=== PATIENT | male | born 1940 | race Hispanic/Latino ===

== ENCOUNTER 2018-02-11 01:56 | Observation (INO) | payer MEDICARE, MEDICAID ==
[2018-02-11 04:34] LABS: Troponin I Less than 0.010 ng/mL (< 0.028)
[2018-02-11] MEDS: Sodium Chloride 0.9% 1,000 ML IV SCH ×2 (04:45→10:44)
[2018-02-11 04:56] VITALS: BMI 26.6
[2018-02-11 07:09] LABS: Troponin I Less than 0.010 ng/mL (< 0.028)
[2018-02-11 11:31] VITALS: BP 146/72; TEMP 98
--- NOTE | 2018-02-11 11:52 | SS ---
DATE OF ADMISSION: 02/11/2018 PRIMARY CARE PROVIDER: George Conley MD CHIEF COMPLAINT: Altered mental status. HISTORY OF PRESENT ILLNESS: This is a 77-year-old male, who presents from [facility] after the patient was noted with altered mentation and general weakness. The pa rama states that he underwent a tooth extraction on 02/10/2018 and was placed up on Tylenol #3 and a moxicillin. The patient states he after taking the Tylenol #3 became lethargic, confused, and was fo und diaphoretic and weak after smoking a cigarette at the facility. EMS personnel were notified and the patient was noted with hypotension with some confusion; however, was alert and oriented x2 per EM S report. The patient does not remember any specific loss of consciousness or evaluation at the hosp [facility] emergency room. The patient denies any specific chest pain, unilateral weakness, headache, or s hortness of breath, but had complained of some mouth pain after the dental extraction. The patient r eceived IV fluids by EMS personnel with initial blood pressure in the 70s-80s systolic. The patient denied any other specific nausea, vomiting, diarrhea, fever, or chills. The patient states he has be en living out at [facility] for approximately 1 year; however, his permanent home i s in the [place], [place] area. PAST MEDICAL HISTORY: 1. Subdural hematoma, status post fall with closed head injury in 2012. Conservative management. 2. Dementia, likely Alzheimer's type. 3. Hepatic cirrhosis, secondary to history of alcohol abuse. 4. Tobacco abuse. 5. Chronic hepatitis C. 6. Deconditioning. PAST SURGICAL HISTORY: Status post hernia repair. CURRENT MEDICATIONS: 1. Amlodipine 10 mg 1 tab p.o. daily. 2. Amoxicillin 500 mg p.o. b.i.d. 3. Lumigan 1 drop to each eye daily. 4. Depakote Extended Release 125 mg p.o. b.i.d. 5. Aricept 23 mg p.o. at bedtime. 6. Lasix 20 mg p.o. daily. 7. Multivitamin 1 tab p.o. daily. 8. Naproxen 500 mg p.o. b.i.d. 9. Potassium chloride 10 mEq p.o. b.i.d. 10. Propranolol 10 mg p.o. t.i.d. 11. Flomax 0.4 mg p.o. at bedtime. 12. Tramadol 50 mg p.o. q.i.d. p.r.n. 13. Trazodone 300 mg p.o. at bedtime. ALLERGIES: No known drug allergies. FAMILY HISTORY: Positive for hypertension. SOCIAL HISTORY: Patient resides at [facility]. Smokes up to a pack of ci garettes daily. No alcohol or illicit drug use. REVIEW OF SYSTEMS: The following complete review of systems was negative, unless otherwise mentioned in the HPI or below: Constitutional: Weight loss or gain, ability to conduct usual activities. Sk in: Rash, itching. Eyes: Double vision, pain. ENT/Mouth: Nose bleeding, neck stiffness, pain, te nderness. Cardiovascular: Palpitations, dyspnea on exertion, orthopnea. Respiratory: Shortness of breath, wheezing, cough, hemoptysis, fever, or night sweats. Gastrointestinal: Poor appetite, abdo karen pain, heartburn, nausea, vomiting, constipation, or diarrhea. Genitourinary: Urgency, frequen cy, dysuria, nocturia. Musculoskeletal: Pain, swelling. Neurologic/Psychiatric: Anxiety, depressi on. Allergy/Immunologic: Skin rash, bleeding tendency. Otherwise, negative except as stated per HP I. PHYSICAL EXAMINATION: VITAL SIGNS: Currently, blood pressure 144/65, pulse 59, respiratory rate 16, temperature 98.0 degre es Fahrenheit, O2 saturation 97% on room air. GENERAL APPEARANCE: This is a 77-year-old male, alert and oriented x2, pleasant, conversant , in no acute distress. HEENT EXAM: Pupils are equal, round, and reactive to light and accommodation. Extraocular muscles a re intact. No scleral icterus, no conjunctival injection. Nares patent. OP is clear. Teeth in poo r repair. NECK: Supple, no cervical adenopathy, no thyromegaly, no carotid bruits, no JVD. Cervical spine wit h full active and passive range of motion. CHEST: Lungs are clear to auscultation bilaterally. CARDIOVASCULAR EXAM: S1, S2 with 1-2/6 systolic ejection murmur, loudest in the left upper sternal b order. ABDOMEN: Rounded, soft, nontender, nondistended. Bowel sounds are positive in all 4 quadrants. The re is no hepatosplenomegaly, no abdominal bruits, no rebound or guarding appreciated. EXTREMITIES: Warm and dry with fair turgor. No clubbing, cyanosis, or asymmetric edema appreciated. Pulses palpable distally at the dorsalis pedis, posterior tibial, and popliteal arteries bilaterall y. Capillary refill less than 2 seconds. NEUROLOGIC EXAM: Cranial nerves II-XII are grossly intact. No focal or lateralizing signs appreciat ed. PERTINENT LABORATORY AND X-RAY FINDINGS: Creatinine 1.36, estimated GFR 51, glucose 105. LFTs withi n normal limits. Troponin I negative x3. CBC showed a white blood cell count of 3.2, hemoglobin 13. 4, hematocrit 40, platelet count 66,000 with normal differential. Portable chest x-ray dated 018 showed no acute cardiopulmonary process. EKG dated 02/11/2018, by my interpretation, shows sinus bradycardia with heart rates in the 50s. Normal R-wave progression noted in the precordial leads. Right bundle branch block pattern noted. No acute ST-T-wave changes appreciated. ASSESSMENT AND PLAN: 1. Toxic metabolic encephalopathy. Secondary to Tylenol #3 exposure. We will continue patient off Tylenol #3 and give general supportive management. Patient currently at baseline mental status funct ion. 2. Hypotension. Suspect secondary to dehydration. Encouraged increased free water intake orally, r esolved. 3. Sinus bradycardia. 4. Chronic condition without symptomatic component. Continue regular outpatient cardiac medications . 5. Chronic kidney disease, stage 2-3. Stable currently. Baseline estimated GFR after review of the medical records. Avoid nephrotoxic agents and limit contrast exposure. 6. Status post tooth extraction. Stable currently. Continue amoxicillin 500 mg p.o. b.i.d. Pain c ontrol with Ultram or naproxen. Discontinue Tylenol #3. 7. Chronic thrombocytopenia. Stable. When compared with previous values dating back to 2013, trend is stable. 8. Prophylaxis. Sequential compression devices while in bed. Pepcid 20 mg p.o. b.i.d. 9. Code status is FULL. Surrogate medical decision maker is patient's brother. DISPOSITION: Discharge back to [facility]. No further workup recommended. The jade ontiveros will follow up with his primary care provider, Dr. Conley.
--- NOTE | 2018-02-11 17:10 | EKG ---
Test Reason : Blood Pressure : / mmHG Vent. Rate : 054 BPM Atrial Rate : 054 BPM P-R Int : 218 ms QRS Dur : 142 ms QT Int : 496 ms P-R-T Axes : 050 -14 043 degrees QTc Int : 470 ms Sinus bradycardia with 1st degree A-V block Right bundle branch block Abnormal ECG Confirmed by ALEX GROSS, DR. Cárdenas ([id number]) on 02/11/2018 5:10:25 PM Referred By: Confirmed By:DR. Melia JOHNSON MD
[2018-02-12] MEDS ORDERED: Prevnar 13-Val Conj/PF 0.5 ML SYRINGE IM ONE (09:00)
== END 2018-02-11 13:59 ==
LOC: ERS 01:56 → 2SW 04:20
PROVIDERS: ADMIT Hospitalist; ATTEND Hospitalist
DX: G92 Toxic encephalopathy (principal); T40.2X5A Adverse effect of other opioids, initial encounter; F17.210 Nicotine dependence, cigarettes, uncomplicated; F03.90 Unspecified dementia, unspecified severity, without behavioral disturbance, psychotic disturbance, mood disturbance, and anxiety; B18.2 Chronic viral hepatitis C; I95.9 Hypotension, unspecified; N18.3 Chronic kidney disease, stage 3 (moderate); D69.6 Thrombocytopenia, unspecified; Z79.899 Other long term (current) drug therapy
CPT/HCPCS: 36415; 84484; 93005

== ENCOUNTER 2020-07-31 13:47 | Outpatient (CLI) | payer MEDICARE, MEDICAID ==
[2020-07-31 16:42] LABS: Bilirubin Neg (Negative); Blood, Urine 250 (Negative); Clarity Bloody (Clear); Glucose, Urine (Dipstick) Normal (Negative); Ketone, Urine Negative (Negative); Leukocyte 25 (Negative); Nitrite Negative (Negative); Protein, Urine (Dipstick) 100 mg/dl (Neg-Trace); Urobilinogen Normal mg/dL (Less than 2)
[2020-07-31 16:50] LABS: Hemoglobin 11.3 g/dL (13.5-17.5); Mean Corpuscular HGB CONC 32.5 g/dL (32.0-36.0); Mean Corpuscular Hemoglobin 28.8 pg (27.0-33.0); Mean Corpuscular Volume 88.5 fl (81.2-95.1); Mean Platelet Volume 10.3 fl (7.4-10.4); Platelet Count 131 10x3/uL (150-450); RBC Distribution Width 13.2 % (11.5-14.5); Red Blood Cell (RBC) Count 3.93 10x6/uL (4.32-5.72); White Blood Cell (WBC) Count 3.6 10x3/uL (3.5-10.5)
[2020-07-31 16:51] LABS: RBC/HPF Greater than 50 HPF (0-3); Squamous Epithelial 0-3 HPF (0-3)
[2020-07-31 16:52] LABS: Bacteria/HPF 1+ HPF (None Seen)
[2020-07-31 16:55] LABS: Anion Gap 13 mmol/L (10-20); BUN (Urea Nitrogen) 16 mg/dL (8.4-25.7); Calc. Creatinine Clearance 0 mL/min (70-130); Calcium 8.8 mg/dL (7.8-10.44); Carbon Dioxide 25 mmol/L (23-31); Chloride 107 mmol/L (98-107); Glucose 105 mg/dL (83-110); Potassium 4.3 mmol/L (3.5-5.1); Sodium 141 mmol/L (136-145)
[2020-07-31 17:10] LABS: INR-International Normal Ratio 1.1; PTT 31.7 sec (22.0-33.0); Prothrombin Time 11.9 sec (9.5-12.1)
[2020-08-01 01:27] LABS: SARS-CoV-2 PCR by NAA Not Detected (NotDetected)
== END 2020-07-31 13:48 | disposition home or self-care (01) ==
LOC: LABBT 13:47
PROVIDERS: ATTEND Urology
DX: Z01.818 Encounter for other preprocedural examination (principal); Z01.812 Encounter for preprocedural laboratory examination; Z20.822 Contact with and (suspected) exposure to COVID-19; C67.2 Malignant neoplasm of lateral wall of bladder; K70.30 Alcoholic cirrhosis of liver without ascites; N40.1 Benign prostatic hyperplasia with lower urinary tract symptoms; R35.0 Frequency of micturition; D61.818 Other pancytopenia; F31.70 Bipolar disorder, currently in remission, most recent episode unspecified; F10.27 Alcohol dependence with alcohol-induced persisting dementia; Z86.73 Personal history of transient ischemic attack (TIA), and cerebral infarction without residual deficits
CPT/HCPCS: 80048; 81001; 85027; 85610; 85730; 87086; U0003; U0005; 87635; 93005; 93010

== ENCOUNTER 2020-08-03 08:03 | Day surgery (SDC) | payer MEDICARE, MEDICAID ==
[2020-08-02 10:19] VITALS: BMI 25.5
[2020-08-03] MEDS ORDERED: Levofloxacin 500 mg/D5W 100 ml Premix Bag ONE (09:11)
[2020-08-03] MEDS ORDERED: mitoMYcin 40 MG in Sterile Water 20 ML I-VESIC SCH (09:15)
[2020-08-03] MEDS ORDERED: Fentanyl 100 MCG/2 ML VIAL ONE (11:25)
[2020-08-03] MEDS ORDERED: B & O ONE (11:39)
[2020-08-03] MEDS ORDERED: Ondansetron PF 4 MG/2 ML Vial ONE (11:59)
[2020-08-03] MEDS ORDERED: Dexamethasone 20 MG/5 ML VIAL ONE (11:59)
[2020-08-03] MEDS ORDERED: Lidocaine 1% PF 5 ML VIAL ONE (11:59)
[2020-08-03] MEDS ORDERED: PROPOFOL 200 MG/20 ML VIAL ONE (11:59)
[2020-08-03] MEDS ORDERED: Rocuronium Bromide 10 MG/ML (10ML VIAL) ONE (11:59)
[2020-08-03] MEDS ORDERED: SUGAMMADEX SODIUM 200 MG/2 ML VIAL ONE (13:17)
[2020-08-03] MEDS ORDERED: Promethazine HCl 25 MG/ML VIAL SLOW IVP PRN (15:00)
[2020-08-03] MEDS ORDERED: Promethazine HCl 25 MG/ML VIAL IM PRN (15:00)
[2020-08-03] MEDS ORDERED: Ondansetron HCl/PF 4 MG/2 ML Vial IVP PRN (15:00)
== END 2020-08-03 17:45 ==
LOC: SDC 08:03
PROVIDERS: ATTEND Urology
PROC: 0T5B8ZZ Destruction of Bladder, Via Natural or Artificial Opening Endoscopic (ICD-10-PCS; principal; 2020-08-03)
PROC: 0T768DZ Dilation of Right Ureter with Intraluminal Device, Via Natural or Artificial Opening Endoscopic (ICD-10-PCS; 2020-08-03)
DX: C67.2 Malignant neoplasm of lateral wall of bladder (principal); N40.1 Benign prostatic hyperplasia with lower urinary tract symptoms; R35.0 Frequency of micturition; K70.30 Alcoholic cirrhosis of liver without ascites; I10 Essential (primary) hypertension; F17.210 Nicotine dependence, cigarettes, uncomplicated; Z86.73 Personal history of transient ischemic attack (TIA), and cerebral infarction without residual deficits; Z79.899 Other long term (current) drug therapy
CPT/HCPCS: 52240; 52332; 74420; J9280; 88307; J1100; J1956; J2405; J2704; J3010